=== PATIENT | female | born 1980 | race Caucasian/White ===

== ENCOUNTER → 2020-03-06 | Outpatient (CLI) | payer BC ==
--- NOTE | 2020-03-07 07:56 | US ---
EXAMINATION TYPE: US thyroid st tissue head/neck DATE OF EXAM: 03/06/2020 COMPARISON: NONE CLINICAL HISTORY: R22.0 Swelling. Patient states doctor felt left side was enlarged GLAND SIZE: Right Lobe: 5.1 x 2.3 x 2.1 cm Overall Parenchyma: homogenous Left Lobe: 4.1 x 1.3 x 1.1 cm Overall Parenchyma: homogeneous Isthmus Thickness: 0.6 cm NODULES RIGHT: # of nodules measured on right: 1 1. 2.2 x 1.5 x 1.6 cm hypoechoic nodule at the mid pole with well-defined margins. This nodule is wider than tall and shows intranodular vascularity. Prior size: No prior LEFT: # of nodules measured on left: 0 ISTHMUS: # of nodules measured in the isthmus: 0 Bilateral neck scanned, no evidence of lymphadenopathy. IMPRESSION: Large solid nodule inferior right lobe thyroid.
== END | disposition home or self-care (01) ==
LOC: RADUSWWP 14:49
PROVIDERS: ATTEND Internal Medicine Hematology & Oncology
DX: E04.1 Nontoxic single thyroid nodule (principal)
CPT/HCPCS: 76536

== ENCOUNTER → 2020-04-22 | Outpatient (CLI) | payer BC ==
--- NOTE | 2020-04-22 15:38 | US ---
EXAMINATION TYPE: US venous doppler duplex LE LT DATE OF EXAM: 04/22/2020 2:55 PM COMPARISON: NONE CLINICAL HISTORY: M79.662,R22.42 PAIN AND SWELLING LT LOWER LEG. Patient states history of DVT left l eg, is on Xeralto. SIDE PERFORMED: Left TECHNIQUE: The lower extremity deep venous system is examined utilizing real time linear array sonog terrance with graded compression, doppler sonography and color-flow sonography. VESSELS IMAGED: External Iliac Vein (EIV) Common Femoral Vein Deep Femoral Vein Greater Saphenous Vein * Femoral Vein Popliteal Vein Small Saphenous Vein * Proximal Calf Veins (* superficial vessels) Left Leg: Negative for DVT IMPRESSION: 1. Left lower extremity ultrasound negative for deep venous thrombosis.
== END ==
LOC: RADUSWWP 14:15
PROVIDERS: ATTEND Internal Medicine Hematology & Oncology
DX: M79.662 Pain in left lower leg (principal); R22.42 Localized swelling, mass and lump, left lower limb

== ENCOUNTER → 2020-12-10 | Outpatient (CLI) | payer BC ==
--- NOTE | 2020-12-10 15:00 | CONS ---
CONSULTATION REASON FOR CONSULTATION: Nocturnal hypoxemia, possible obstructive sleep apnea. A 40-year-old, morbidly obese female patient coming in due to concerns of sleep apnea and nocturnal hypoxemia. The patient has had previous history of pulmonary embolism back in 2019. At that time, she presented to [facility] and she had DVT of the lower extremity and a tiny subsegmental pulmonary embolism was found in the left lower lobe pulmonary artery branches. At that point, the patient was started on anticoagulation with Xarelto and she is still taking 20 mg of Xarelto on a daily basis. There was a concern that the patient is desaturating at night time and there was also concern that she may be having obstructive sleep apnea as the patient was noted to snore loud. She has excessive fatigue and tiredness during the day. Never the less, there was no major sleepiness and Weare score is a 3. In fact, the patient has difficulty falling asleep and she goes to bed and ultimately she falls asleep at around 2:30 and she gets out of bed around 9 to 10 o'clock in the morning. She has a 3-year- old child at home which sometimes wakes her up from sleep. During the day, she feels tired as mentioned. Denies waking up in the middle of night choking or gasping for air. No restlessness in lower extremities. No sleepwalking or sleeptalking. No grinding of the teeth. No dry mouth. She has occasional heartburn and she has woken up from sleep because of shortness of breath and that was a major concern for her along with the possibility of nocturnal hypoxemia. Her current Weare score is a 3. She has gained around 40 pounds since her around 3 years ago. PAST MEDICAL HISTORY: 1. History of DVT and pulmonary embolism. 2. History of diabetes mellitus. 3. History of iron-deficiency anemia which improved post hysterectomy and her iron levels have normalized. PAST SURGICAL HISTORY: Past surgical history includes hysterectomy, ankle surgery, and spine injection to her lumbar spine. DRUG ALLERGIES: Not known. OUTPATIENT MEDICATION LIST: Outpatient medication list includes Xarelto 20 mg p.o. daily, metformin 500 mg p.o. daily, multivitamins, vitamin B12, vitamin B6, vitamin D, baclofen and iron supplements. SOCIAL HISTORY: Nonsmoker. No history of alcoholism. No history of IV drugs. FAMILY HISTORY: Mother of complications of lung cancer and she had a [place] tumor. Father is a smoker. He has severe hypertension. REVIEW OF SYSTEMS: Fourteen-point review of system was done. Positive findings are mentioned in history of present illness. No sleep paralysis. No hallucinations. No cataplexy. History is positive for weight gain. She prefers to sleep on her sides. No history of any motor vehicle accident because of feeling drowsy or sleepy. She wakes up a few times in the middle of the night, at times choking and gasping. She does not take any naps despite being tired during the day. PHYSICAL EXAMINATION: VITAL SIGNS: BP is 137/87, pulse 90, respirations 20, temperature 98.1, saturation 99% on room air. Height is 5 feet 4 inches, weight is 236 and BMI 57.6. Weare score is at 3. Neck size 17 inches. Saturation is 100% on room air. Temperature 98.1. GENERAL APPEARANCE: Calm, comfortable. HEAD: Atraumatic, normocephalic. NECK: Supple. No JVD. No goiter or neck mass. Mallampati class 3. LUNGS: Clear to auscultation. HEART: Heart sounds are regular rate and rhythm. Normal S1, S2. No S3, S4. No murmurs. ABDOMEN: Obese, soft, nontender. Organs cannot be palpated. No rebound tenderness or guarding. EXTREMITIES: Trace edema. There is no cyanosis or clubbing. IMPRESSION: 1. Chronic fatigue with limited sleepiness. Weare score of 3. Not certain if the patient has obstructive sleep apnea, yet cannot rule it out especially with her history of snoring and morbid obesity with a body mass index 57.6. She also has a Mallampati class 3. 2. Possible nocturnal alveolar hypoventilation secondary hypoxemia. 3. Chronic exertional dyspnea, likely secondary to obesity. 4. Previous history of deep vein thrombosis and pulmonary embolism, maintained on long- term anticoagulation with Xarelto. 5. Diabetes mellitus. 6. History of iron deficiency anemia, improved post hysterectomy. PLAN: 1. Will proceed with a home sleep study to evaluate for any sleep breathing disorder. This will be also good opportunity to assess the patient's nocturnal oxygen analysis and see if there is any significant nocturnal oxygen desaturations. 2. The patient is fatigued yet she does not have any major hypersomnia or sleepiness. She also has difficulty initiating sleep and there may be a component of insomnia. She may have also a component of insomnia/delayed sleep phase syndrome. 3. Optimize sleep hygiene measures and this was discussed with the patient. 4. Continue Xarelto for long-term anticoagulation. 5. Obtain a full pulmonary function test to assess for any extrapulmonary restriction related to obesity. 6. Continue iron supplements. 7. We will continue to follow and make further recommendations based on the above- mentioned results. MMODL / IJN: [id number] /
== END | disposition home or self-care (01) ==
LOC: SLEEP 13:06
PROVIDERS: ATTEND Internal Medicine Critical Care Medicine
DX: G47.30 Sleep apnea, unspecified (principal); E11.9 Type 2 diabetes mellitus without complications; E66.01 Morbid (severe) obesity due to excess calories; R06.01 Orthopnea; R53.82 Chronic fatigue, unspecified; Z90.710 Acquired absence of both cervix and uterus; Z86.2 Personal history of diseases of the blood and blood-forming organs and certain disorders involving the immune mechanism; Z79.01 Long term (current) use of anticoagulants; Z86.711 Personal history of pulmonary embolism; Z86.718 Personal history of other venous thrombosis and embolism
CPT/HCPCS: 99211

== ENCOUNTER → 2021-03-03 | Outpatient (CLI) | payer BC ==
--- NOTE | 2021-03-05 13:33 | MM ---
Reason for exam: screening (asymptomatic). Baseline mammogram. History: Patient had first child at age 36. Physical Findings: Nurse did not find any significant physical abnormalities on exam. MG 3D Screening Mammo W/Cad Bilateral CC and MLO view(s) were taken. There are scattered fibroglandular densities. There is no discrete abnormality. A right axillary lymph node is visualized. ASSESSMENT: Benign, BI-RAD 2 RECOMMENDATION: Routine screening mammogram of both breasts in 1 year.
== END | disposition home or self-care (01) ==
LOC: RADMAMWWP 13:50
PROVIDERS: ATTEND Obstetrics & Gynecology
DX: Z12.31 Encounter for screening mammogram for malignant neoplasm of breast (principal)
CPT/HCPCS: 77063; 77067

== ENCOUNTER → 2021-04-30 | Outpatient (CLI) | payer BC ==
--- NOTE | 2021-04-30 10:09 | US ---
EXAMINATION TYPE: US venous doppler duplex LE LT DATE OF EXAM: 04/30/2021 10:01 AM COMPARISON: US CLINICAL HISTORY: M79.662 Pain left leg. Pt states recent injury to left leg/ Pt states history of DV T left leg, currently on blood thinners SIDE PERFORMED: Left TECHNIQUE: The lower extremity deep venous system is examined utilizing real time linear array sonog terrance with graded compression, doppler sonography and color-flow sonography. VESSELS IMAGED: Common Femoral Vein Deep Femoral Vein Greater Saphenous Vein * Femoral Vein Popliteal Vein Small Saphenous Vein * Proximal Calf Veins (* superficial vessels) Left Leg: Negative for DVT IMPRESSION: 1. Left lower extremity ultrasound negative for deep venous thrombosis
== END | disposition home or self-care (01) ==
LOC: RADUSWWP 09:43
PROVIDERS: ATTEND Internal Medicine Hematology & Oncology
DX: S89.92XA Unspecified injury of left lower leg, initial encounter (principal); M79.605 Pain in left leg

== ENCOUNTER → 2022-12-11 | Outpatient (CLI) | payer BC ==
--- NOTE | 2022-12-14 07:46 | MM ---
Reason for Exam: Screening (asymptomatic). Last mammogram was performed 1 year(s) and 9 month(s) ago. Patient History: Menarche at age 12. First Full-Term at age 36. Late child-bearing (after 30). Hysterectomy at age 39. Risk Values: Rosaline 5 year model risk: 1.0%. NCI Lifetime model risk: 13.2%. Prior Study Comparison: 03/03/2021 Bilateral Screening Mammogram, [facility]. Tissue Density: There are scattered fibroglandular densities. Findings: Analyzed By CAD. There is no suspicious new group of microcalcifications or new suspicious mass in either breast. Overall Assessment: Negative, BI-RAD 1 Management: Screening Mammogram of both breasts in 1 year. A clinical breast exam by your physician is recommended on an annual basis and results should be correlated with mammographic findings. Electronically signed and approved by: Aric Russo M.D.
== END | disposition home or self-care (01) ==
LOC: RADMAMWWP 09:34
PROVIDERS: ATTEND Obstetrics & Gynecology
DX: Z12.31 Encounter for screening mammogram for malignant neoplasm of breast (principal)
CPT/HCPCS: 77063; 77067

== ENCOUNTER → 2024-01-07 | Outpatient (CLI) | payer BC ==
--- NOTE | 2024-01-11 10:15 | MM ---
Reason for Exam: Screening (asymptomatic). Last mammogram was performed 1 year(s) and 1 month(s) ago. Patient History: Menarche at age 12. First Full-Term at age 36. Late child-bearing (after 30). Hysterectomy at age 39. Perimenopausal. Risk Values: Rosaline 5 year model risk: 1.1%. NCI Lifetime model risk: 13.1%. Prior Study Comparison: 03/03/2021 Bilateral Screening Mammogram, [facility]. 12/11/2022 Bilateral MG 3D screening mammo w/cad, [facility]. Tissue Density: The breasts are almost entirely fatty. Findings: Analyzed By CAD. Right breast: There is no suspicious group of microcalcifications or new suspicious mass. Left breast: There is no suspicious group of microcalcifications or new suspicious mass. Overall Assessment: Negative, BI-RAD 1 Management: Screening Mammogram of both breasts in [address] [facility] will attempt to contact patient to return for supplemental views and ultrasound if indicated. Patient should continue monthly self-breast exams. A clinical breast exam by your physician is recommended on an annual basis. This exam should not preclude additional follow-up of suspicious palpable abnormalities. Note on Rosaline scores and lifetime risk: 1. A Rosaline score greater than 3% is considered moderate risk. If this is the case, consider specialist referral to assess eligibility for a risk reducing agent. 2. If overall lifetime risk for the development of breast cancer is 20% or higher, the patient may qualify for future screening with alternating mammogram and breast MRI. Electronically signed and approved by: Krish Pendleton DO
== END | disposition home or self-care (01) ==
LOC: RADMAMWWP 11:13
PROVIDERS: ATTEND Obstetrics & Gynecology
DX: Z12.31 Encounter for screening mammogram for malignant neoplasm of breast (principal)
CPT/HCPCS: 77063; 77067

== ENCOUNTER → 2024-02-09 | Outpatient (CLI) | payer BC ==
[2024-02-09 15:01] LABS: African American GFR (CKD) >90 (>60 ml/min/1.73 sqM); Blood Urea Nitrogen 14 mg/dL (7-17); Non-African American GFR(CKD) 84 (>60 ml/min/1.73 sqM)
--- NOTE | 2024-02-09 16:18 | CT ---
EXAMINATION TYPE: CT abdomen pelvis w con DATE OF EXAM: 02/09/2024 COMPARISON: None HISTORY: abdominal pain CT DLP: 1800 mGycm CONTRAST: CT scan of the abdomen and pelvis is performed with Oral Contrast and with IV Contrast, patient injec jesse with 100 mL of Isovue 300. FINDINGS: LUNG BASES-: No visible nodule. No infiltrate. LIVER/GB: No calcified gallstones. No space occupying hepatic lesion. Biliary tree is of normal ca liber. PANCREAS: No inflammation. No distinct mass. SPLEEN: No splenic enlargement. No lesion seen. ADRENALS: No nodule. No thickening. KIDNEYS/BLADDER: No hydronephrosis. No nephrolithiasis. No distinct renal mass. Urinary bladder g rossly unremarkable. BOWEL: Nonvisualization of the appendix. Normal bowel caliber. No inflammation. GENITAL ORGANS: Hysterectomy changes noted. No adnexal masses seen. LYMPH NODES: No greater than 1cm abdominal or pelvic lymph nodes are appreciated. AORTA: No significant abnormality. OSSEOUS STRUCTURES: No significant abnormality is seen. OTHER: Fat-containing umbilical hernia noted. IMPRESSION: 1. Small fat-containing umbilical hernia. Otherwise unremarkable study.
== END | disposition home or self-care (01) ==
LOC: RADCTMAIN 14:02
PROVIDERS: ATTEND Family Medicine
DX: K42.9 Umbilical hernia without obstruction or gangrene (principal)
CPT/HCPCS: 82565; 84520; 74177; 36415; Q9967